=== PATIENT | female | born 1940 | race African-American/Black ===

== ENCOUNTER → 2019-06-12 | Outpatient (CLI) | payer MEDICARE, BC ==
--- NOTE | 2019-06-12 17:49 | RAD ---
Exam: CT head INDICATION: Persistent headache TECHNIQUE: Sequential axial images through the head were obtained without the administration of IV contrast. Comparisons: None FINDINGS: No focal parenchymal lesion or hemorrhage is identified. There is no midline shift or sulcal effacement. Confluent hypodensities noted within the periventricular and deep white matter bilaterally. No acute vascular territory infarction is identified. Allison-white distinction is preserved. The ventricular system is within normal limits without compression hydrocephalus. The basal cisterns are well maintained. The visualized portions of the paranasal sinuses and mastoid air cells are well-pneumatized. No acute fractures. IMPRESSION: Moderate to severe small vessel ischemic change, technically age indeterminate without prior imaging. Exposure: One or more of the following in the visualized dose reduction techniques were utilized for this examination: 1. Automated exposure control 2. Adjustment of the MA and/or KV according to patient size Use of iterative of reconstructive technique Electronically signed by: Katie Elizondo MD (06/12/2019 5:47 PM) [facility]
== END | disposition home or self-care (01) ==
LOC: CT 17:19
PROVIDERS: ATTEND Family Medicine
DX: I67.82 Cerebral ischemia (principal); G44.52 New daily persistent headache (NDPH)
CPT/HCPCS: 70450

== ENCOUNTER 2020-12-16 08:05 | Observation (INO) | payer MEDICARE, BC ==
[~2020-12-16] VITALS: Ht 170.2 cm; Wt 60.1 kg
[2020-12-16 09:04] LABS: BASO % 0 % (0-3); EOS # 0.1 x10^3/uL (0.0-0.7); EOS % 1 % (0-3); HEMOGLOBIN 14.4 g/dL (12.0-15.5); LYMPH # 1.3 x10^3/uL (1.0-4.8); LYMPH % 26 % (24-48); MEAN CORPUSCULAR HEMOGLOBIN 28 pg (25-35); MEAN CORPUSCULAR HGB CONC 32 g/dL (31-37); MEAN CORPUSCULAR VOLUME 87 fL (79-100); MONO # 0.4 x10^3/uL (0.0-1.1); MONO % 9 % (0-9); NEUT # 3.1 x10^3uL (1.8-7.7); NEUT % 64 % (31-73); PLATELET COUNT 188 x10^3/uL (140-400); RED CELL DISTRIBUTION WIDTH 16.2 % (11.5-14.5); WHITE BLOOD COUNT 4.9 x10^3/uL (4.0-11.0)
[2020-12-16 09:12] LABS: CREATININE 0.9 mg/dL (0.6-1.0); GFR 72.7; POTASSIUM 4.5 mmol/L (3.5-5.1)
[2020-12-16 09:20] LABS: ALBUMIN/GLOBULIN RATIO 1.2 (1.0-1.7); TOTAL BILIRUBIN 0.6 mg/dL (0.2-1.0); TOTAL PROTEIN 7.3 g/dL (6.4-8.2)
[2020-12-16 09:26] LABS: CALCIUM 9.3 mg/dL (8.5-10.1)
--- NOTE | 2020-12-16 09:26 | PHYS DOC ---
Past History Past Medical History: A-Fib, Diabetes, Hypertension Adult General Chief Complaint Chief Complaint: TREMORS HPI HPI Patient is a 80-year-old female presenting via POV for dizziness. She is here with daughter who is assisting with history. Patient has numerous comorbid conditions such as diabetes, atrial fibrillation for which she is on warfarin, high blood pressure etc. She has been compliant with all home medications. Denies any recent falls, trauma, inciting event or ingestion. States she simply woke up this morning at 0430 hrs. to go to the bathroom when after standing up she got exquisitely dizzy. She stated she felt lightheaded temporarily and was having difficulty ambulate to the bathroom requiring use of typical home cane. Reports drifting to her left side which is new, held her self up with the wall going to the bathroom and back into bed. Tried to go back to sleep but dizziness was ongoing. Laying flat on her back made better, reports all positional movements make worse. Denies being in any pain. Reports taking 81 mg aspirin daily but denies any prior CAD, DE, CVA etc. Denies any recent febrile illness, COVID-19 contact, chest pain, shortness of breath, abdominal pain, changes in motor, sensory or neurologic function Review of Systems Review of Systems Fourteen body systems of review of systems have been reviewed. See HPI for pertinent positives and negative responses, other skinner all other systems are negative, non-pertinent or non-contributory Current Medications Current Medications Current Medications Medications (Trade) Dose Ordered Sig/Hudson Start Time Stop Time Status Last Admin Dose Admin Iohexol (Omnipaque 350 Mg/ml) 100 ml 1X ONCE 12/16/20 09:30 12/16/20 09:22 DC Allergies Allergies Allergies Coded Allergies Type Severity Reaction Last Updated Verified Iodinated Contrast Media Allergy Unknown 12/16/20 No Penicillins Allergy Unknown 12/16/20 Yes amoxicillin Allergy Unknown 12/16/20 Yes clavulanic acid Allergy Unknown 12/16/20 Yes iodine Allergy Unknown 12/16/20 Yes Physical Exam Physical Exam Constitutional: Well developed, well nourished, no acute distress, non-toxic appearance. HENT: Normocephalic, atraumatic, bilateral external ears normal, oropharynx moist, no oral exudates, nose normal. Eyes: PERRLA, EOMI, conjunctiva normal, no discharge. Neck: Normal range of motion, no tenderness, supple, no stridor. Cardiovascular: Heart rate regular, sinus rhythm, no murmurs rubs or gallops Lungs & Thorax: Bilateral breath sounds clear to auscultation Abdomen: Bowel sounds normal, soft, no tenderness, no masses, no pulsatile mas ses. Nonsurgical abdomen, no peritoneal signs Skin: Warm, dry, no erythema, no rash. Back: No tenderness, no CVA tenderness. Extremities: No tenderness, no cyanosis, no clubbing, ROM intact, no edema. Neurologic: Alert and oriented X 3, cranial nerves II through XII intact, normal motor & sensory function, no focal deficits noted. Patient unsteady on feet, was ambulating utilizing cane with assistance but states ongoing tendency to drift to her left. NIH stroke scale performed and 0. Lower extremity patellar reflexes performed and 2+ bilaterally, neurovascularly intact to all x4 extremities, [id number]-hr-[id number] bilateral upper extremities and ijpx-yw-brej of bilateral lower extremities unremarkable Psychologic: Affect normal, judgement normal, mood normal. Current Patient Data Vital Signs Vital Signs Date Time Temp Pulse Resp B/P (MAP) Pulse Ox O2 Delivery O2 Flow Rate FiO2 12/16/20 08:07 97.9 64 16 152/99 (116) 98 Room Air Vital Signs Date Time Temp Pulse Resp B/P (MAP) Pulse Ox O2 Delivery O2 Flow Rate FiO2 12/16/20 11:16 62 16 167/99 (121) 98 Room Air 12/16/20 08:07 97.9 Lab Results Laboratory Tests Test 12/16/20 08:21 12/16/20 08:35 Glucose (Fingerstick) 105 mg/dL (70-99) H White Blood Count 4.9 x10^3/uL (4.0-11.0) Red Blood Count 5.20 x10^6/uL (3.50-5.40) Hemoglobin 14.4 g/dL (12.0-15.5) Hematocrit 45.0 % (36.0-47.0) Mean Corpuscular Volume 87 fL (79-100) Mean Corpuscular Hemoglobin 28 pg (25-35) Mean Corpuscular Hemoglobin Concent 32 g/dL (31-37) Red Cell Distribution Width 16.2 % (11.5-14.5) H Platelet Count 188 x10^3/uL (140-400) Neutrophils (%) (Auto) 64 % (31-73) Lymphocytes (%) (Auto) 26 % (24-48) Monocytes (%) (Auto) 9 % (0-9) Eosinophils (%) (Auto) 1 % (0-3) Basophils (%) (Auto) 0 % (0-3) Neutrophils # (Auto) 3.1 x10^3uL (1.8-7.7) Lymphocytes # (Auto) 1.3 x10^3/uL (1.0-4.8) Monocytes # (Auto) 0.4 x10^3/uL (0.0-1.1) Eosinophils # (Auto) 0.1 x10^3/uL (0.0-0.7) Basophils # (Auto) 0.0 x10^3/uL (0.0-0.2) Sodium Level 142 mmol/L (136-145) Potassium Level 4.5 mmol/L (3.5-5.1) Chloride Level 106 mmol/L (98-107) Carbon Dioxide Level 26 mmol/L (21-32) Anion Gap 10 (6-14) Blood Urea Nitrogen 11 mg/dL (7-20) Creatinine 0.9 mg/dL (0.6-1.0) Estimated GFR (Cockcroft-Gault) 72.7 BUN/Creatinine Ratio 12 (6-20) Glucose Level 123 mg/dL (70-99) H Calcium Level Pending Total Bilirubin 0.6 mg/dL (0.2-1.0) Aspartate Amino Transferase (AST) 31 U/L (15-37) Alanine Aminotransferase (ALT) 29 U/L (14-59) Alkaline Phosphatase 70 U/L (46-116) Troponin I Quantitative < 0.017 ng/mL (0-0.055) Total Protein 7.3 g/dL (6.4-8.2) Albumin 4.0 g/dL (3.4-5.0) Albumin/Globulin Ratio 1.2 (1.0-1.7) EKG EKG EKG ordered and interpreted by myself at 0855 hrs. as sinus rhythm at 70 bpm, unremarkable intervals, left axis deviation, no STEMI Radiology/Procedures Radiology/Procedures CT head without contrast 12/16/2020 9:26 AM INDICATION: Dizzy. False to the left with angulation. COMPARISON: CT head 06/12/2019 TECHNIQUE: Multiple axial CT images of the head were obtained from skull base through the vertex without intravenous contrast. FINDINGS: Head: Ventricles, sulci and basal cisterns are prominent compatible with mild generalized cerebral volume loss. Low-attenuation in the periventricular white matter is suggestive of chronic small vessel ischemic changes. There is no hydrocephalus. Allison-white matter differentiation is normal. There is no acute intracranial hemorrhage. There is no mass, mass effect or midline shift. Posterior fossa is normal in appearance. Visualized portions of the orbits are normal with exception of bilateral lens replacement. Paranasal sinuses are well aerated. Mastoid air cells are well aerated. Scalp and calvaria are normal. IMPRESSION: No acute intracranial hemorrhage. Mild generalized cerebral volume loss. Low-attenuation in the periventricular white matter is suggestive of chronic small vessel ischemic changes. Electronically signed by: Melinda Nuñez MD (12/16/2020 9:46 AM) [id number] ///////////////////// INDICATION: Reason: DIZZY / Spl. Instructions: / History: COMPARISON: March 13, 2012 FINDINGS: Single view of chest obtained. Cardiomediastinal silhouette is enlarged with tortuous aortic contour. No definite focal airspace consolidation or pulmonary edema. IMPRESSION: * No focal airspace consolidation or edema. * Enlarged cardiac silhouette Electronically signed by: Jose Ortiz MD (12/16/2020 9:59 AM) [id number] Heart Score C/O Chest Pain: No HEART Score for Chest Pain: HEART Score for Chest Pain Response (Comments) Value History Slighlty/Non-Suspicious 0 ECG Normal 0 Age > 65 2 Risk Factors >3 Risk Factors or Hx CAD 2 Troponin < Normal Limit 0 Total 4 Risk Factors: Risk Factors: DM, Current or recent (<one month) smoker, HTN, HLP, family history of CAD, obesity. Risk Scores: Risk Factors: DM, Current or recent (<one month) smoker, HTN, HLP, family history of CAD, obesity. Course & Med Decision Making Course & Med Decision Making Hemodynamically stable patient with history of dizziness that started this morning at 0430 hrs. without trauma. Laying still makes better moving makes worse with swinging towards left side. NIH 0. CT head unremarkable. Unable to perform CTA due to extreme allergy to IV contrast Differential discussed. There is been no recent febrile illness or URI-like symptoms, less likely labyrinthitis versus other vestibular disease. Symptoms not consistent or reproducible with certain motions. Discussed case with patient and daughter, patient who typically performs all ADLs at home independently cannot do this at present, will need admission for PT evaluation etc. Dr. Gutierres, neurology consulted and agreed to current work-up and plan of care and will see patient while admitted I contacted hospitalist and discussed need for admission, he agreed and accepted patient under his care. I have updated patient and daughter at bedside on proposed plan of care that included hospital admission and they were amenable. All questions and concerns addressed prior to admission Critical Care Time This patient required critical care. Due to the fact that the patient required a significant amount of one on one physician - patient contact time, ordering and review of studies, arranging urgent treatment with development of a management plan, evaluation of patients response to treatment with frequent reassessments, and discussions with other providers this patient required 40 minutes of critical care time. Critical care time was indicated due to the inherent instability and/or potential for instability in this patient. The critical care time that is allocated to this patient is above and beyond any time spent on any other billable procedures performed on this patient. Dragon Disclaimer Dragon Disclaimer This electronic medical record was generated, in whole or in part, using a voice recognition dictation system. NIH Stroke Scale: NIH Stroke Scale Response (Comments) Value Level of Consciousness: 0 Alert/Responsive 0 LOC Questions: 0 Answers both correctly 0 LOC Commands: 0 Performs both tasks 0 Best Gaze: 0 Normal 0 Visual: 0 No visual loss 0 Facial Palsy: 0 Normal, symmetrical 0 Motor - Left Arm 0 No drift 0 Motor - Right Arm 0 No drift 0 Motor - Left Leg 0 No drift 0 Motor: Right Leg 0 No drift 0 Limb Ataxia: 0 Absent 0 Sensory: 0 No loss 0 Best Language: 0 Normal 0 Dysathria: 0 Normal 0 Extinction and Inattention: 0 Normal 0 Total 0 Departure Departure: Impression: Primary Impression: Dizziness Additional Impressions: HTN (hypertension) Type 2 diabetes mellitus History of atrial fibrillation Disposition: ADMITTED INPATIENT Admitting Physician: Kristen Matos Condition: STABLE Referrals: EDUARDO GORDILLO MD (PCP) Problem Qualifiers DAVID NUNN DO Dec 16, 2020 09:26
[2020-12-16] MEDS ORDERED: IOHEXOL 350 MG/ML 100 ML VIAL. IV ONE (09:30)
--- NOTE | 2020-12-16 09:48 | RAD ---
PQRS Compliance Statement: One or more of the following individualized dose reduction techniques were utilized for this examinat ion: 1. Automated exposure control 2. Adjustment of the mA and/or kV according to patient size 3. Use of iterative reconstruction technique CT head without contrast 12/16/2020 9:26 AM INDICATION: Dizzy. False to the left with angulation. COMPARISON: CT head 06/12/2019 TECHNIQUE: Multiple axial CT images of the head were obtained from skull base through the vertex with out intravenous contrast. FINDINGS: Head: Ventricles, sulci and basal cisterns are prominent compatible with mild generalized cerebral volume l oss. Low-attenuation in the periventricular white matter is suggestive of chronic small vessel ischem ic changes. There is no hydrocephalus. Allison-white matter differentiation is normal. There is no acute intracranial hemorrhage. There is no mass, mass effect or midline shift. Posterior fossa is normal i n appearance. Visualized portions of the orbits are normal with exception of bilateral lens replacement. Paranasal sinuses are well aerated. Mastoid air cells are well aerated. Scalp and calvaria are normal. IMPRESSION: No acute intracranial hemorrhage. Mild generalized cerebral volume loss. Low-attenuation in the periventricular white matter is suggest gerardo of chronic small vessel ischemic changes. Electronically signed by: Melinda Nuñez MD (12/16/2020 9:46 AM) [id number]
[2020-12-16 09:50] LABS: BILIRUBIN,URINE NEG (NEG); CLARITY,URINE CLEAR; COLOR,URINE YELLOW; GLUCOSE,URINE NEG (NEG); NITRITE,URINE NEG (NEG); UROBILINOGEN,URINE 0.2 mg/dL (0.2 mg/dL)
[2020-12-16 09:51] LABS: BACTERIA,URINE 0 /HPF (0-FEW); RBC,URINE 0 /HPF (0-2); SQUAMOUS EPITHELIAL CELL,UR FEW /LPF; WBC,URINE 0 /HPF (0-4)
--- NOTE | 2020-12-16 10:01 | RAD ---
INDICATION: Reason: DIZZY / Spl. Instructions: / History: COMPARISON: March 13, 2012 FINDINGS: Single view of chest obtained. Cardiomediastinal silhouette is enlarged with tortuous aortic contour. No definite focal airspace consolidation or pulmonary edema. IMPRESSION: * No focal airspace consolidation or edema. * Enlarged cardiac silhouette Electronically signed by: Jose Ortiz MD (12/16/2020 9:59 AM) [id number]
[2020-12-16] MEDS ORDERED: ACETAMINOPHEN 325 MG TABLET PO PRN (10:30)
--- NOTE | 2020-12-16 10:32 | EKG ---
[address] [address] Test Date: 2020-12-16 Test Time: 08:48:05 Pat Name: TONYA WHITE Department: Room: Gender: F [employer] Code Enforcement Officer: EDISON : 1940 Requested By: DAVID NUNN Order Number: [id number] Reading MD: Measurements Intervals Tabiona Rate: 70 P: 71 NH: 172 QRS: -44 QRSD: 74 T: 31 QT: 380 QTc: 413 Interpretive Statements SINUS RHYTHM ABNORMAL LEFT AXIS DEVIATION R-S TRANSITION ZONE IN V LEADS DISPLACED TO THE RIGHT LEFT ANTERIOR FASCICULAR BLOCK QRS(T) CONTOUR ABNORMALITY CONSIDER ANTEROSEPTAL MYOCARDIAL DAMAGE ABNORMAL ECG RI6.02 No previous ECG available for comparison
[2020-12-16 13:22] VITALS: BP 135/92
[2020-12-16] MEDS ORDERED: LISI10TA16 PO (14:23)
[2020-12-16] MEDS ORDERED: METF500T16 PO (14:23)
[2020-12-16] MEDS ORDERED: METO-247 PO (14:23)
[2020-12-16] MEDS ORDERED: LOVA10TA PO (14:23)
[2020-12-16] MEDS ORDERED: WARF1TAB69 PO (14:23)
[2020-12-16] MEDS ORDERED: WARF3TAB50 PO (14:23)
--- NOTE | 2020-12-16 15:17 | NUR ---
admission note Pt admitted to unit at 1233 via ems from ed. pt was admitted into room number 124 at 1233 for dizziness
[2020-12-16 16:25] VITALS: BP 107/74
[2020-12-16] MEDS ORDERED: COD1CAPS6 PO (16:33)
[2020-12-16] MEDS ORDERED: GARL10002 PO (16:33)
[2020-12-16] MEDS ORDERED: TETR15DR14 OP (16:33)
[2020-12-16] MEDS ORDERED: CHOL10004 PO (16:38)
[2020-12-16] MEDS ORDERED: TETRAHYDROZOLINE 0.05% OPHTH SOLUTION 15ML BOTTLE. OU PRN (17:30)
--- NOTE | 2020-12-16 17:36 | HP ---
ADMIT DATE: 12/16/2020 HISTORY OF PRESENT ILLNESS: The patient is an 80-year-old -[place] Citizen female patient who was brought to the emergency room with a complaint of dizziness. She apparently woke up this morning at around 4:30 to go to the bathroom when after standing up, she got exquisitely dizzy. She stated she felt lightheaded temporarily and was having difficulty ambulating to the bathroom, requiring use of typical home cane. She reports lifting her left side, which has been held herself up with a wall going to the bathroom and back into the bed, tried to go back to sleep, but dizziness was ongoing; lying flat on her back made her better. Reports overall position and movement made it worse. Denied any nausea or vomiting. Denied any double vision. Denied any weakness, tingling or numbness and she was extensively investigated in the Emergency Room and has had imaging studies and lab work. Her lab work was mostly unremarkable. Her CT scan of the head showed no acute intracranial hemorrhage. There is mild generalized cerebral volume loss, low attenuation in the periventricular white matter, suggestive of chronic small vessel ischemic changes. The patient was admitted with dizziness, questionable benign paroxysmal positional vertigo. We did consult Dr. Gutierres for evaluation and treatment. Unfortunately, the patient is extremely allergic to IODINATED CONTRAST MEDIA and a CT angio of the neck and head was not done. She was admitted for further evaluation by the neurologist as well as started with physical and occupational therapy as the patient normally lives alone and she is fairly independent for all activities of daily living. PAST MEDICAL HISTORY: Significant for type 2 diabetes mellitus, hypertension, hyperlipidemia, atrial fibrillation. She apparently has an episode of TIA before. PAST SURGICAL HISTORY: Significant for total abdominal hysterectomy and bilateral salpingo-oophorectomy; has tooth extraction; left hip fracture, status post open reduction and internal fixation. ALLERGIES: SHE IS ALLERGIC TO IODINATED CONTRAST MEDIA, PENICILLIN, AMOXICILLIN, CLAVULANIC ACID, AND IODINE. MEDICATIONS: She is currently on the following medication: She is on warfarin 1 mg, 0.5 mg and warfarin 3 mg on a daily basis, lovastatin 10 mg daily, metoprolol succinate 100 mg once a day, lisinopril 10 mg once a day, Keppra. She is on eyedrops 1 drop to both eyes as needed, metformin 500 mg daily, cod liver oil 1 capsule daily. She is on ergocalciferol 50 mcg once a day, and garlic 1000 mg daily. FAMILY HISTORY: Noncontributory. SOCIAL HISTORY: She is , has 2 sons and 5 daughters. Her oldest daughter of uterine cancer. She never smoked, does not drink alcohol or do recreational drugs. She worked at the [employer] and currently retired. PHYSICAL EXAMINATION: GENERAL: On arrival to the Emergency Room, she looked well and was clearly in no apparent respiratory distress. No pallor, jaundice, cyanosis, or thyromegaly. No jugular distention. No limb edema. VITAL SIGNS: Heart rate was 64, blood pressure 152/99, temperature was 97.9, respiratory rate was 16 and oxygen saturation was 98% on room air. HEENT: Examination of the head, eyes, ears, nose, and throat: Normocephalic, atraumatic. NECK: Supple. HEART: Showed normal first and second heart sounds. No gallop, murmur. CHEST: Clear to auscultation. Occasional rhonchi. ABDOMEN: Distended, soft, nontender. NEUROLOGIC: She was awake, alert, responding appropriately. All cranial nerves intact. She moves without difficulty. She has no evidence of nystagmus. LABORATORY DATA: Her lab work showed prothrombin time of 15.9, INR 1.6, APTT 41. Her white cell count was 4900, hemoglobin 14, hematocrit 45, MCV 87 and platelet count of 188,000 with normal manual differential. Her chemistry showed a serum sodium 142, potassium 4.5, chloride 106, bicarbonate 26, anion gap of 10, BUN 11, creatinine 0.9. Estimated GFR was 73 mL per minute. Her glucose 123, calcium was 9.3. Total bilirubin, AST, ALT, alkaline phosphatase were normal. Total protein 7.3, albumin was 4. Her urinalysis essentially unremarkable. Her chest x-ray showed no focal airspace consolidation or edema. Enlarged cardiac silhouette and the CT scan of the head showed the patient has the ventricles, sulci, and basal cisterns are prominent compatible with mild generalized cerebral volume loss, low attenuation in the periventricular white matter, suggestive of chronic small vessel ischemic changes including the hydrocephalus. Allison-white matter differentiation is normal. There is no acute intracranial hemorrhage. There is no mass, mass effect or midline shift. Serial phosphatase is normal in appearance. The visualized portions of the orbits are normal with the exception of the bilateral lens replacement, paranasal sinuses are well aerated, mastoid air cells are well aerated, scalp and calvaria are normal. ASSESSMENT AND PLAN: In summary, this is an 80-year-old -[place] Citizen female patient who was admitted with new onset of dizziness. It is very positional. CT scan was unremarkable. Plan is to reconcile all her medication. Consult the neurologist and Physical and Occupational Therapy. BHAVIN DR: Luis TID: [id number]
[2020-12-16 18:11] LABS: CREATININE 0.9 mg/dL (0.6-1.0); GFR 72.7; POTASSIUM 4.1 mmol/L (3.5-5.1)
[2020-12-16 19:05] VITALS: BP 132/90
[2020-12-16 23:00] VITALS: BP 101/72
--- NOTE | 2020-12-17 02:57 | CONS ---
DATE OF CONSULTATION: 12/16/2020 NEUROLOGY CONSULTATION REFERRING PHYSICIAN: Dr. Matos. REASON FOR CONSULTATION: Rule out transient ischemic attack versus stroke. CHIEF COMPLAINT: Frequent dizziness, rule out transient ischemic attack. HISTORY OF PRESENT ILLNESS: This is an 80-year-old right-handed -Trist[place] female who was admitted through emergency room after she presented with a new onset of recurrent dizzy spells described as unsteadiness and lightheadedness. According to the patient, after waking up early this morning and trying to go to the bathroom, upon standing, she felt very dizzy, described as unsteadiness or going to pass out. The patient described her symptoms as lightheadedness associated with anxiety attack and tachycardia along with slurred speech. She tried to use a cane and walking to emergency room, she went back to bed and slept. Upon waking this morning she had the same episode of dizziness. The patient stated when she laid flat in bed, she did not have dizziness. She denies nausea, vomiting, chest pain or shortness of breath; however, she described very brief visual disturbances, but no diplopia. The patient denies weakness, paresthesia, headache, dysarthria or dysphagia. In the emergency room, the patient was extensively investigated and had nonenhanced head CT scan was performed, which revealed no acute intracranial process. However, a mild white matter small vessel ischemic changes were also noted. She has had a history of atrial fibrillation and possible had paroxysmal atrial fibrillation this morning; however, she was admitted for further evaluation and observation for possible intermittent cardiac arrhythmia. During the interview, the patient denies any new medical or neurological complaints and she stated her dizzy spell has been somewhat lessened in frequency and intensity. PAST MEDICAL HISTORY: Significant for transient ischemic attack, diabetes mellitus type 2, hypertension, hyperlipidemia and a history of atrial fibrillation. PAST SURGICAL HISTORY: Positive for total abdominal hysterectomy, left hip fracture required an open reduction and internal fixation. FAMILY HISTORY: Noncontributory. SOCIAL HISTORY: The patient feels independently. She is . She has 2 sons and 5 daughters. She denies smoking, alcohol drinking or illicit drug use. CURRENT HOME MEDICATIONS: Warfarin, lovastatin, metoprolol, lisinopril, metformin, ergocalciferol and garlic. ALLERGIES: CONTRAST MEDIA, IODINE, AMOXICILLIN, CLAVULANIC ACID AND IODINE. PHYSICAL EXAMINATION: GENERAL: Well-developed, well-nourished -Tristanian female in no acute distress. VITAL SIGNS: She weighs 60.1 kilos, blood pressure 107/74, respiratory rate 16, pulse is 88, oxygen saturation is 95% on room air and temperature 98.3. HEENT: Normocephalic, atraumatic, otherwise unremarkable. NECK: Supple, negative for carotid bruit, lymphadenopathy or thyromegaly. LUNGS: Clear to A and P. HEART: Regular rate and rhythm, normal S1, S2. There is no S3, S4 or murmur. ABDOMEN: Soft. Bowel sounds positive. EXTREMITIES: Negative for cyanosis, clubbing or pedal edema. NEUROLOGIC: Mental status: The patient is alert and oriented x 3. Speech is fluent. There is no language dysfunction. Memory, judgment and abstracting thinking are normal patients of her age. The patient denies hallucination or delusion. Cranial nerves: Visual alaniz are full. The pupils are reactive to light and accommodation. The extraocular movements are intact. There is no nystagmus. There is no facial motor or sensory deficits. Hearing is intact bilaterally. The palate is elevated symmetrically. Sternocleidomastoid muscles are powerful bilaterally. The patient shrugs her shoulders symmetrically, protrudes her tongue in the midline without fasciculation or atrophy. Motor: No focal muscle bulk wasting. The tone is normal. The strength is 4/5 throughout. Sensory examination revealed normal pinprick, light touch, vibratory and position senses. Deep tendon reflexes were symmetric and hypoactive with absent Achilles responses. Gait not tested. EKG revealed normal sinus rhythm at a rate of 70s. Diagnostic initial nonenhanced head CT scan revealed a mild generalized atrophy with chronic small vessel ischemic changes. Chest x-ray revealed no acute cardiopulmonary process, but enlarged cardiac silhouette. LABORATORY DATA: CBC revealed blood cells of 4.9 thousand, hemoglobin 14.4, hematocrit 45, platelet count 188,000. Chemistry: Sodium of 144, potassium 4.1, chloride 109, CO2 of 27, BUN 15, creatinine 0.9, glucose 140, calcium 9. Troponin level is normal. Urinalysis is negative for urinary tract infection. PT is 15.9, INR 1.6. IMPRESSION: 1. Dizziness described as a lightheadedness aggravated by changing her body positions and suggestive of benign positional dizziness. 2. Acute and paroxysmal atrial fibrillation, this episode versus transient ischemic attack could not be entirely excluded. 3. Multiple medical problems include paroxysmal atrial fibrillations, previous transient ischemic attack, hypertension, hyperlipidemia, and diabetes mellitus type 2. RECOMMENDATION: 1. Continue with current medical therapy initiated by Dr. Matos. 2. Consider PT, OT. 3. Continue with cardiac monitoring for possible intermittent cardiac arrhythmia. CATRACHITA DR: Hero TID: [id number]
[2020-12-17 05:55] VITALS: BP 135/90
[2020-12-17] MEDS ORDERED: NON FORMULARY ITEM (Cod Liver Oil 1 EACH) PO SCH (09:00)
[2020-12-17] MEDS ORDERED: LISINOPRIL 10 MG TABLET PO SCH (09:00)
[2020-12-17] MEDS ORDERED: NON FORMULARY ITEM (Garlic 1,000 MG) PO SCH (09:00)
[2020-12-17] MEDS ORDERED: CHOLECALCIFEROL (VITAMIN D3) 1,000 UNIT TABLET PO SCH (09:00)
[2020-12-17] MEDS ORDERED: METOPROLOL SUCC 24HR ER 50 MG TAB.ER.24H. PO SCH (09:00)
[2020-12-17 09:14] VITALS: BP_SYST 128; BP_SYST 135; BP_DIAS 83; BP_DIAS 87
[2020-12-17 09:15] VITALS: BP 132/91
[2020-12-17 11:15] VITALS: BP 115/79
[2020-12-17 15:39] VITALS: BP 159/99
[2020-12-17] MEDS ORDERED: WARFARIN 1 MG TABLET. PO SCH (16:00)
[2020-12-17] MEDS ORDERED: ATORVASTATIN CALCIUM 10 MG TABLET. PO SCH (16:00)
[2020-12-17] MEDS ORDERED: WARFARIN 3 MG TABLET. PO SCH (16:00)
[2020-12-17] MEDS ORDERED: metFORMIN 500 MG TABLET PO SCH (16:00)
--- NOTE | 2020-12-17 16:24 | NUR ---
PATIENT IS DISCHARGED HOME, DISCHARGED INSTRUCTION REVIEWED, PATIENT VERBALIZED UNDERSTANDING. PATIENT LEFT ROOM VIA W/C ACCOMP BY THIS RN. PATIENT TAKEN HOME BY FAMILY MEMBER VIA PERSONAL TRANSPORTATION.
--- NOTE | 2020-12-17 21:01 | DS ---
DATE OF DISCHARGE: 12/17/2020 HOSPITAL COURSE: The patient is an 80-year-old -[place]ammar[place] female patient who was admitted yesterday with an episode of dizziness that is very positional. CT scan was unremarkable. She was seen in consultation by the neurologist as well as the physical and occupational therapist and she apparently did very well. Has had no further episodes of dizziness, lightheadedness, has been up and about, moving around without any difficulty and a decision was made to discharge her home to continue on all her current medication. Follow up with her primary care physician. PHYSICAL EXAMINATION: GENERAL: When I saw her this afternoon, she looked well and was clearly in no apparent respiratory distress. No pallor, jaundice, cyanosis, or thyromegaly. No jugular distention. No limb edema. VITAL SIGNS: Heart rate was 94, blood pressure 115/79, temperature was 97.6, respiratory rate was 20 and oxygen saturation was 95% on room air. HEAD, EYES, EARS, NOSE AND THROAT: Normocephalic, atraumatic. NECK: Supple. HEART: Normal first and second heart sounds. No gallop or murmur. CHEST: Clear to auscultation. No crepitation or rhonchi. ABDOMEN: Scaphoid, soft, nontender. NEUROLOGIC: She is awake, alert, responding appropriately. Cranial nerves intact. EXTREMITIES: She moves extremities without difficulty. She ambulates without assistance or assistive devices. She has orthostatic blood pressure measurement that showed no evidence of any hemodynamically significant postural hypotension. LABORATORY DATA: Her prothrombin time was 15.6, INR 1.5. Her blood sugars seem to be reasonably controlled. Kidney function showed a serum sodium 144, potassium 4.1, chloride 109, bicarbonate 27, anion gap of 8, BUN 15, creatinine 0.9. Estimated GFR was 72 mL per minute. Her glucose 140, calcium was 9. DISCHARGE MEDICATIONS: The patient was discharged home to continue on her ergocalciferol, vitamin D 50 mcg once a day, cod liver oil 1 capsule daily, garlic 1000 mg daily, lisinopril 10 mg once a day, lovastatin 10 mg p.o. daily. She is on metformin 500 mg daily, metoprolol succinate 100 mg once a day. She is on eye drops, apply topically to both eyes as needed. Warfarin 0.5 mg daily and warfarin sodium 3 mg daily. FINAL DISCHARGE DIAGNOSES: Acute dizziness, lightheadedness suggestive of benign positional vertigo, paroxysmal atrial fibrillation, hypertension, hyperlipidemia, type 2 diabetes mellitus, and previous history of transient ischemic attack. LAURA DR: Luis TID: [id number]
--- NOTE | 2020-12-18 01:22 | PN ---
DATE: 12/17/2020 SUBJECTIVE: The patient denies any new medical or neurological complaints. She denies headache, visual disturbance, dizziness, chest pain, shortness of breath or palpitation. OBJECTIVE: GENERAL: Well-developed, well-nourished female, not in acute distress. VITAL SIGNS: Blood pressure 135/90, respiratory rate 18, pulse is 90 and regular, oxygen saturation is 97% on room air. The patient did not have any orthostatic hypotension this morning. HEENT: Normocephalic, atraumatic, otherwise unremarkable. NECK: Supple. Negative for carotid bruit, lymphadenopathy or thyromegaly. LUNGS: Clear to A and P. CARDIOVASCULAR: Regular rate and rhythm, normal S1, S2. ABDOMEN: Soft. Bowel sounds positive. EXTREMITIES: Negative for cyanosis, clubbing or edema. NEUROLOGIC: Mental status: The patient is alert and oriented x3. Speech is fluent. There is no language dysfunction. Cranial nerves are intact. No focal motor or sensory deficit. Deep tendon reflexes were symmetric and hypoactive with absent Achilles responses. Gait: The stance is steady. IMPRESSION: 1. Acute onset of dizziness, aggravated by changing body positions -- resolved. 2. Questionable of paroxysmal atrial fibrillation. 3. Multiple medical problems include hypertension, hyperlipidemia, diabetes mellitus and history of paroxysmal atrial fibrillation. RECOMMENDATION: Continue with current management initiated by Dr. Matos including PT/OT. The patient is neurologically intact. BUCK/MAHOGANY/VALENT[place] DR: Hero TID: [id number]
== END 2020-12-17 16:20 | disposition home or self-care (01) ==
LOC: ER 08:05 → 1 SOUTH 10:25 → INTOOBSV 10:25 → ER 12:14
PROVIDERS: ADMIT Internal Medicine; ATTEND Internal Medicine
DX: R42 Dizziness and giddiness (principal); I10 Essential (primary) hypertension; E11.9 Type 2 diabetes mellitus without complications; I48.0 Paroxysmal atrial fibrillation; F41.1 Generalized anxiety disorder; E78.5 Hyperlipidemia, unspecified; Z79.82 Long term (current) use of aspirin; Z86.73 Personal history of transient ischemic attack (TIA), and cerebral infarction without residual deficits; Z90.710 Acquired absence of both cervix and uterus
CPT/HCPCS: 36415; 70450; 71045; 80048; 80053; 81001; 82947; 84484; 85025; 85610; 85730; 93005; 99291; G0378; G0379

== ENCOUNTER → 2021-03-17 | Outpatient (CLI) | payer MEDICARE, BC ==
[~2021-03-17] MED LIST: CHOL10004 PO; COD1CAPS6 PO; GARL10002 PO; LISI10TA16 PO; LOVA10TA PO; METF500T16 PO; METO-247 PO; TETR15DR14 OP; WARF1TAB69 PO; WARF3TAB50 PO
--- NOTE | 2021-03-19 08:20 | RAD ---
INDICATION: 81 years of age asymptomatic female patient presents for screening mammography. TECHNIQUE: Full field craniocaudal and mediolateral oblique images of both breasts were obtained usi ng digital technique with tomosynthesis and also analyzed with computer-aided detection software. COMPARISON: No prior imaging is available for comparison BREAST COMPOSITION: Category C: The breast tissue is heterogeneously dense, which could obscure detec tion of small masses. FINDINGS: Benign calcifications are present. No suspicious masses, microcalcifications or architectural distortion is present to suggest malignanc y in either breast. The visualized axillae are unremarkable. IMPRESSION: No mammographic evidence of malignancy. RECOMMENDATION: Annual screening mammography is recommended, unless clinically indicated sooner based on symptoms or change in physical exam. BIRADS 2: BENIGN This study was interpreted with the benefit of Computerized Aided Detection (CAD). ?Your patient's mammogram demonstrates that she has dense breast tissue (breast density category C or D), which could hide abnormalities, and if she has other risk factors for breast cancer that have be en identified, she might benefit from supplemental screening tests that may be suggested by you as he r ordering physician. Dense breast tissue, in and of itself, is a relatively common condition. Theref ore, this information is not provided to cause undue concern, but rather to raise your awareness and to promote discussion with your patient regarding the presence of other risk factors, in addition to dense breast tissue. Your patient's mammography results will be sent to her. Patient information is entered into the reminder system with a target due date for the next screening mammogram. Mammography is the most sensitive method for finding small breast cancers, but it does not detect the m all and is not a substitute for careful clinical examination. A negative mammogram does not negate a clinically suspicious finding and should not result in delay in biopsying a clinically suspicious a bnormality. "Our facility is accredited by the [employer] Mammography [employer]." Electronically signed by: Daniel Villanueva MD (03/19/2021 8:18 AM) [place] [id number]
== END ==
LOC: MAMMO 14:48
PROVIDERS: ATTEND Family Medicine
DX: Z12.31 Encounter for screening mammogram for malignant neoplasm of breast (principal)
CPT/HCPCS: 77067